=== PATIENT | female | born 1950 | race Caucasian/White ===

== ENCOUNTER 2020-08-17 20:37 | Emergency (ER) | payer MEDICARE, BC ==
[2020-08-17] MEDS ORDERED: Cephalexin 250 MG Cap PO ONE (21:29)
[2020-08-17] MEDS ORDERED: valACYclovir 1,000 MG Tab PO SCH (21:30)
--- NOTE | 2020-08-17 21:32 | EDM.PDOC ---
ED HPI GENERAL MEDICAL PROBLEM - General Chief Complaint: Skin Complaint Stated Complaint: SWELLING IN JAW, SPIDER BITES Time Seen by Provider: 08/17/20 21:15 Source of Information: Reports: Patient History Limitations: Reports: No Limitations - History of Present Illness INITIAL COMMENTS - FREE TEXT/NARRATIVE: Patient comes in with lower right jaw inflammation.This started approximally 2 days ago. There is pain, redness and swelling on right lower jaw. She is here from [place]. Prior to leaving [place] she had a cosmetic fill, the irritation is in the same region as the injection. Pt also notices what she thinks is bug bites on the back central right neck. Raised blister formation. Onset: Gradual Duration: Hour(s):, Day(s):, Getting Worse Location: Reports: Face (right lower jaw line, ), Neck (right lateral neck does not cross midline) Quality: Reports: Burning Severity: Moderate Improves with: Reports: None Worsens with: Reports: None Context: Reports: Other Right Face/Facial Pain Score (Numeric/FACES): 2 - Related Data Allergies Allergy/AdvReac Type Severity Reaction Status Date / Time valacyclovir Allergy Dizziness Verified 08/17/20 21:42 Home Meds: Home Meds cephALEXin [Keflex] 500 mg PO Q8H 10 Days #30 cap 08/17/20 [Rx] estradioL [Estrace Vaginal] 1 applic VAG BEDTIME 08/17/20 [History] valACYclovir HCl [Valacyclovir] 1,000 mg PO TID 7 Days #21 tablet 08/17/20 [Rx] Past Medical History HEENT History: Reports: None Cardiovascular History: Reports: None Respiratory History: Reports: None Gastrointestinal History: Reports: None Genitourinary History: Reports: None Musculoskeletal History: Reports: None Neurological History: Reports: Migraines Psychiatric History: Reports: None Endocrine/Metabolic History: Reports: None Hematologic History: Reports: None Immunologic History: Reports: None Oncologic (Cancer) History: Reports: Uterine Dermatologic History: Reports: None - Infectious Disease History Infectious Disease History: Reports: C-Difficile, Measles, Mumps, Pertussis (Whooping Cough) - Past Surgical History HEENT Surgical History: Reports: None GI Surgical History: Reports: Hernia, Inguinal Female Surgical History: Reports: Hysterectomy, Salpingo-Oophorectomy Social & Family History - Tobacco Use Tobacco Use Status *Q: Never Tobacco User ED ROS GENERAL - Review of Systems Review Of Systems: See Below Constitutional: Reports: No Symptoms HEENT: Reports: No Symptoms Respiratory: Reports: No Symptoms Cardiovascular: Reports: No Symptoms Skin: Reports: Rash (Lateral neck), Wound (Right lower jaw) Neurological: Reports: No Symptoms Psychiatric: Reports: No Symptoms ED EXAM, SKIN/RASH Exam: See Below Exam Limited By: No Limitations General Appearance: Alert, WD/WN, Mild Distress Head: Facial Swelling, Facial Tenderness Neck: Tender Lateral, Other (Raised blister formation right of center neck does not cross midline) Respiratory/Chest: No Respiratory Distress, Lungs Clear, Normal Breath Sounds, No Accessory Muscle Use Cardiovascular: Normal Peripheral Pulses, Regular Rate, Rhythm Skin: Warm, Dry, Erythema, Increased Warmth, Rash, Zoster-Like Rash (Right lateral neck right of midline) Location, Skin: Face Characteristics: Vesicular, Bullous Associated features: Warmth, Tenderness, Swelling Course - Vital Signs Last Recorded V/S: Last Vital Signs Temp 36.5 C 08/17/20 21:04 Pulse 70 08/17/20 21:04 Resp 18 08/17/20 21:04 BP 127/64 08/17/20 21:04 Pulse Ox 98 08/17/20 21:04 - Orders/Labs/Meds Meds: Medications Discontinued Medications Generic Name Dose Route Start Last Admin Trade Name Lance PRN Reason Stop Dose Admin Cephalexin 500 mg 08/17/20 21:29 08/17/20 21:39 Cephalexin 250 Mg Cap PO 08/17/20 21:30 500 mg ONETIME ONE Administration Valacyclovir HCl 1,000 mg 08/17/20 21:30 08/17/20 21:41 Valacyclovir 1,000 Mg Tab PO Not Given DAILY GABY - Re-Assessments/Exams Free Text/Narrative Re-Assessment/Exam: 08/18/20 01:14 Vesicular leg rash likely zoster on back of neck. Patient has allergy or intolerance to acyclovir and prefers to not take anything for the rash at this time. However facial rash where cosmetic injection occurred is red raised, and warm to touch, will prescribe Keflex and have patient follow-up with her cosmetic provider Departure - Departure Time of Disposition: 21:29 Disposition: Home, Self-Care 01 Condition: Good Clinical Impression: Cellulitis - Discharge Information *PRESCRIPTION DRUG MONITORING PROGRAM REVIEWED*: Not Applicable *COPY OF PRESCRIPTION DRUG MONITORING REPORT IN PATIENT ZULMA: Not Applicable Prescriptions: cephALEXin [Keflex] 500 mg PO Q8H 10 Days #30 cap valACYclovir HCl [Valacyclovir] 1,000 mg PO TID 7 Days #21 tablet Instructions: Cellulitis, Adult Referrals: [facility] [Other] Forms: ED Department Discharge Additional Instructions: Take all medications as prescribed until gone. If symptoms worsen or do not improve followup with your provider or return to the er. Sepsis Event Note (ED) - Evaluation Sepsis Screening Result: No Definite Risk - Focused Exam Vital Signs: Vital Signs Temp Pulse Resp BP Pulse Ox 08/17/20 21:04 36.5 C 70 18 127/64 98 08/17/20 20:52 36.5 C 70 18 127/64 98
== END 2020-08-17 21:52 | disposition home or self-care (01) ==
LOC: JP.ED 20:37
DX: L03.221 Cellulitis of neck (principal); Z88.1 Allergy status to other antibiotic agents
CPT/HCPCS: 99283; A9270